=== PATIENT | male | born 1960 | race Caucasian/White ===

== ENCOUNTER → 2021-01-26 | Outpatient (CLI) | payer OTHER ==
[~2021-01-26] MED LIST: ASPI-496 PO; IBUP-1902 PO; LISI40TA9 PO
[2021-01-26 10:51] LABS: MICROSCOPIC NOT IND
[2021-01-26 11:04] LABS: ALANINE AMINOTRANSFERASE 38 U/L (12-78); ANION GAP 4 mmol/L (5-15); CALCIUM 9.1 mg/dL (8.5-10.1); CHLORIDE 106 mmol/L (98-107); CHOLESTEROL, TOTAL 169 mg/dL (140-239); CREATININE 1.03 mg/dL (0.7-1.3); TRIGLYCERIDES 126 mg/dL (50-200); VLDL CHOLESTEROL 25 mg/dL (0-25)
[2021-01-26 11:14] LABS: ALKALINE PHOSPHATASE 82 U/L (45-117); BILIRUBIN,TOTAL 0.7 mg/dL (0.2-1.0); CHOL/HDL RATIO 4.1; HDL CHOL % 24 % (26-37); HDL CHOLESTEROL (DIRECT) 41 mg/dL (40-60); LDL CHOLESTEROL,CALCULATED 103 mg/dL (54-169); LDL/HDL RATIO 2.5 (0.5-3.0)
== END | disposition home or self-care (01) ==
LOC: LAB 10:20
PROVIDERS: ATTEND Family Medicine
DX: Z00.00 Encounter for general adult medical examination without abnormal findings (principal)
CPT/HCPCS: 36415; 80053; 80061; 81003; 84153; 84443; G0103